=== PATIENT | female | born 1990 | race Caucasian/White ===

== ENCOUNTER 2025-01-05 02:49 | Emergency (ER) | payer BC ==
[~2025-01-05] VITALS: Ht 170.2 cm; Wt 101.0 kg
[2025-01-05] MEDS ORDERED: PLAQUENIL200 MG PO (03:03)
[2025-01-05] MEDS ORDERED: VITAMIN B COMP1 EAC1 PO (03:04)
[2025-01-05] MEDS ORDERED: PROGESTERONE200 MG PO (03:04)
[2025-01-05] MEDS ORDERED: METFORMIN HCL500 M3 PO (03:04)
[2025-01-05] MEDS ORDERED: PRENATAL TABLE1 EAC6 PO (03:05)
[2025-01-05 03:11] LABS: BASOPHILS 0.2 % (0.1-1.2); EOSINOPHILS 1.1 % (0.7-5.8); LYMPHOCYTES 30.1 % (19.3-51.7); MCH 28.5 PG (25.6-32.2); MCHC 34.5 g/dL (32.2-35.5); MCV 82.5 fL (79.4-94.8); MONOCYTES 6.1 % (4.7-12.5); NEUTROPHILS 62.1 % (34.0-71.1); RBC 4.98 M/uL (3.93-5.22)
[2025-01-05] MEDS ORDERED: FAMOTIDINE 20 MG/ 2 ML VIAL IV ONE (03:15)
[2025-01-05] MEDS ORDERED: EPIPEN AUTO INJECTOR 0.3 MG/0.3 ML ML IM ONE (03:15)
[2025-01-05] MEDS ORDERED: ACETAMINOPHEN 500 MG TAB PO ONE (03:30)
[2025-01-05 03:36] LABS: ABO A; RH POSITIVE
[2025-01-05 03:44] LABS: LACTIC ACID, BLOOD 3.0 mmol/L (0.4-2.0)
[2025-01-05 03:50] LABS: ALT (SGPT) 24.0 U/L (14-59); AST (SGOT) 26.0 U/L (15-37); GLOMERULAR FILTRATION RATE,EST 91.0 mL/min (>60); PROTEIN, TOTAL 7.3 g/dL (6.4-8.2); UREA NITROGEN 13.0 mg/dL (7-18)
[2025-01-05] MEDS ORDERED: SODIUM CHLORIDE 0.9% 1,000 ML IV SCH (04:00)
[2025-01-05 04:34] LABS: BLOOD/HGB, URINE LARGE (Negative); KETONE, URINE SMALL (Negative); LEUK ESTERASE, URINE MODERATE (negative); NITRITE, URINE POSITIVE (negative)
[2025-01-05 04:40] LABS: CRYSTALS, URINE NONE SEEN (0-1+); EPITHELIAL CELLS, URINE SQUAMOUS 1+ /lpf (0-1+)
[2025-01-05 04:41] LABS: CASTS, URINE NONE SEEN \\lpf
[2025-01-05 04:42] LABS: BACTERIA, URINE 2+ /hpf (negative); REFLEX CULTURE, URINE Yes (No)
[2025-01-05 05:30] LABS: BLOOD/HGB, URINE LARGE (Negative); KETONE, URINE NEGATIVE (Negative); LEUK ESTERASE, URINE NEGATIVE (negative); NITRITE, URINE NEGATIVE (negative)
[2025-01-05 05:36] LABS: BACTERIA, URINE RARE /hpf (negative); CASTS, URINE NONE SEEN \\lpf; CRYSTALS, URINE NONE SEEN (0-1+); EPITHELIAL CELLS, URINE SQUAMOUS 1+ /lpf (0-1+)
[2025-01-05 05:37] LABS: REFLEX CULTURE, URINE No (No)
[2025-01-05] MEDS ORDERED: EPIPEN 2-P0.3 MG/0.3 IM (07:12)
[2025-01-05] MEDS ORDERED: CEPHALEXIN500 M1 PO (07:12)
[2025-01-05 07:26] VITALS: BP 118/67
== END 2025-01-05 07:28 | disposition home or self-care (01) ==
LOC: ED 02:49
PROVIDERS: Internal Medicine
DX: O9A.211 Injury, poisoning and certain other consequences of external causes complicating pregnancy, first trimester (principal); T78.2XXA Anaphylactic shock, unspecified, initial encounter; O20.0 Threatened abortion; O99.891 Other specified diseases and conditions complicating pregnancy; M32.9 Systemic lupus erythematosus, unspecified; Z3A.01 Less than 8 weeks gestation of pregnancy; Z87.59 Personal history of other complications of pregnancy, childbirth and the puerperium; Z88.5 Allergy status to narcotic agent; Z88.4 Allergy status to anesthetic agent; Z79.84 Long term (current) use of oral hypoglycemic drugs; Z79.899 Other long term (current) drug therapy
CPT/HCPCS: 36415; 76801; 76817; 80053; 81001; 83605; 83690; 84702; 85025; 86900; 86901; 87040; 87088; 96365; 96372; 96375; 99284-25; J0169; J0696; J1200; J2919; J7030

== ENCOUNTER 2025-02-08 01:27 | Emergency (ER) | payer OTHER ==
[~2025-02-08] VITALS: Ht 170.2 cm; Wt 101.0 kg
[~2025-02-08 01:27] MED LIST: CEPHALEXIN500 M1 PO; EPIPEN 2-P0.3 MG/0.3 IM; METFORMIN HCL500 M3 PO; PLAQUENIL200 MG PO; PRENATAL TABLE1 EAC6 PO; PROGESTERONE200 MG PO; VITAMIN B COMP1 EAC1 PO
[2025-02-08] MEDS ORDERED: DEXAMETHASONE SOD PHOS 10 MG/ML VIAL IV ONE (02:00)
[2025-02-08] MEDS ORDERED: CETIRIZINE HCL 10 MG TAB PO ONE (02:00)
[2025-02-08] MEDS ORDERED: FAMOTIDINE 20 MG TAB PO ONE (02:00)
[2025-02-08 02:03] LABS: BASOPHILS 0.3 % (0.1-1.2); EOSINOPHILS 1.2 % (0.7-5.8); LYMPHOCYTES 26.6 % (19.3-51.7); MCH 28.2 PG (25.6-32.2); MCHC 34.5 g/dL (32.2-35.5); MCV 81.7 fL (79.4-94.8); MONOCYTES 6.7 % (4.7-12.5); NEUTROPHILS 64.6 % (34.0-71.1); RBC 4.93 M/uL (3.93-5.22)
[2025-02-08 02:17] LABS: ALT (SGPT) 24.0 U/L (14-59); AST (SGOT) 23.0 U/L (15-37); GLOMERULAR FILTRATION RATE,EST 103.0 mL/min (>60); PROTEIN, TOTAL 7.7 g/dL (6.4-8.2); UREA NITROGEN 10.0 mg/dL (7-18)
[2025-02-08] MEDS ORDERED: SODIUM CHLORIDE 0.9% 500 ML IV PRN (02:45)
[2025-02-08 03:33] VITALS: BP 116/70
[2025-02-09] MEDS ORDERED: VIT D3-VIT K21 EACH PO (15:42)
[2025-02-09] MEDS ORDERED: SINGULAIR10 MG PO (17:12)
[2025-02-09] MEDS ORDERED: PREDNISONE20 MG PO (17:12)
[2025-02-10 06:54] LABS: BILE ACIDS, TOTAL 7 umol/L (0-10)
== END 2025-02-08 03:33 | disposition home or self-care (01) ==
LOC: ED 01:27
PROVIDERS: Family Medicine
DX: O26.891 Other specified pregnancy related conditions, first trimester (principal); L29.9 Pruritus, unspecified; M32.9 Systemic lupus erythematosus, unspecified; Z3A.10 10 weeks gestation of pregnancy; Z79.899 Other long term (current) drug therapy; Z79.52 Long term (current) use of systemic steroids; Z88.5 Allergy status to narcotic agent; Z88.8 Allergy status to other drugs, medicaments and biological substances
CPT/HCPCS: 36415; 80053; 82239; 85025; 96374; 99283-25; J1100; J7040

== ENCOUNTER 2025-02-09 15:22 | Emergency (ER) | payer OTHER ==
[~2025-02-09] VITALS: Ht 170.2 cm; Wt 104.0 kg
--- OUTSIDE RECORDS SUMMARY | 2025-02-09 15:29 | XMS ---
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 E.D. VISIT COUNT (12 MO.) 3 [facility] TOTAL 3 NOTE: Visits indicate total known visits. ED/UCC VISIT TRACKING (12 MO.) 02/09/2025 15:22 [facility] [place] TYPE: Emergency COMPLAINT: - ALLERGIC REACTION 02/08/2025 01:27 [facility] [place] TYPE: Emergency COMPLAINT: - ALLERGIC REACTION 01/05/2025 02:[address] [facility] [place] TYPE: Emergency COMPLAINT: - SHAKING DIAGNOSES: - Allergy status to anesthetic agent - Allergy status to narcotic agent - Anaphylactic shock, unspecified, initial encounter - Injury, poisoning and certain other consequences of external causes complicating , first trimester - Less than 8 weeks gestation of - half-way (current) use of oral hypoglycemic drugs - Other alf (current) drug therapy - Other specified diseases and conditions complicating - Personal history of other complications of , childbirth and the puerperium - Systemic lupus erythematosus, unspecified - Threatened INPATIENT VISIT TRACKING (12 MO.) No inpatient visits to display in this time frame [email or web address]
[2025-02-09] MEDS ORDERED: VIT D3-VIT K21 EACH PO (15:42)
[2025-02-09] MEDS ORDERED: FAMOTIDINE 20 MG TAB PO ONE (16:15)
[2025-02-09 16:42] LABS: BLOOD/HGB, URINE NEGATIVE (Negative); KETONE, URINE NEGATIVE (Negative); LEUK ESTERASE, URINE NEGATIVE (negative); NITRITE, URINE NEGATIVE (negative)
[2025-02-09] MEDS ORDERED: PREDNISONE20 MG PO (17:12)
[2025-02-09] MEDS ORDERED: SINGULAIR10 MG PO (17:12)
[2025-02-09 17:15] VITALS: BP 108/70
== END 2025-02-09 17:15 | disposition home or self-care (01) ==
LOC: ED 15:22
PROVIDERS: Emergency Medicine
DX: O99.711 Diseases of the skin and subcutaneous tissue complicating pregnancy, first trimester (principal); L50.9 Urticaria, unspecified; Z3A.12 12 weeks gestation of pregnancy; Z79.899 Other long term (current) drug therapy; Z88.5 Allergy status to narcotic agent; Z88.8 Allergy status to other drugs, medicaments and biological substances
CPT/HCPCS: 81003; 99283; Q0163